=== PATIENT | female | born 1985 | race Caucasian/White ===

== ENCOUNTER 2016-06-07 19:14 | Emergency (ER) | payer OTHER ==
[2016-06-07 19:22] VITALS: O2SAT 98
[2016-06-07] MEDS ORDERED: FLUORESCEIN SODIUM 1 MG STRIP OP ONE ×2 (19:37→19:40)
[2016-06-07] MEDS ORDERED: PROPARACAINE 0.5% 15 ML OPHT DROP ONE (19:38)
[2016-06-07] MEDS ORDERED: PROPARACAINE 0.5% 15 ML OPHT DROP OP ONE (19:39)
--- NOTE | 2016-06-07 19:44 | UCPHY ---
H & P Time Seen by Provider: 06/07/16 19:32 Patient Type: New HPI/ROS: CHIEF COMPLAINT: Right eye pain HISTORY OF PRESENT ILLNESS: 31-year-old female presents with right eye pain. Onset of right eye pain today, associated with excessive watering. Similar to prior episodes of viral conjunctivitis. She has had multiple prior episodes for several years, usually successfully treated with Valtrex. She has a standing prescription from her printer repair technician, but the prescription has . No visual change. No recent injury or illness. REVIEW OF SYSTEMS: Constitutional: No fever, no chills Eyes: No visual changes ENT: No sore throat Respiratory: No cough Gastrointestinal: No nausea, no vomiting Skin: No rash Neurological: No headache Past Medical/Surgical History: Viral conjunctivitis Smoking Status: Never smoked Physical Exam: Lids: no proptosis, no periorbital erythema or swelling, no vesicles Conjunctivae: right conjunctiva all erythema, no discharge Pupils:equal round and reactive to light EOMI Cornea: Normal, no dendrites Anterior chamber:Clear, no hyphema Constitutional: Initial Vital Signs Temperature (C) 36.8 C 06/07/16 19:20 Heart Rate 74 06/07/16 19:20 Respiratory Rate 15 06/07/16 19:20 Blood Pressure 116/77 06/07/16 19:20 O2 Sat (%) 98 06/07/16 19:20 O2 Delivery Mode Room Air Allergies/Adverse Reactions: No Known Allergies Allergy (Unverified 06/07/16 19:19) Home Medications: Medication Instructions Recorded valACYclovir [Valtrex (*)] 500 mg PO TID #30 tab 06/07/16 Medical Decision Making Procedures: Fluorescein and Alcaine instilled into right eye for slit-lamp exam. Differential Diagnosis: Differential diagnosis includes hyphema, acute iritis, traumatic mydriasis, corneal abrasion, globe rupture. - Data Points Medications Given: Discontinued Medications Fluorescein Sodium ([id number]) 1 mg OP EDNOW ONE Stop: 06/07/16 19:41 Last Admin: 06/07/16 19:41 Dose: 1 mg Proparacaine HCl (Alcaine 0.5%) 1 drops OP EDNOW ONE Stop: 06/07/16 19:40 Last Admin: 06/07/16 19:40 Dose: 1 drop Departure - Departure Disposition: Home, Routine, Self-Care Clinical Impression: Conjunctivitis Qualifiers: Conjunctivitis type: acute Acute conjunctivitis type: viral Laterality: right Qualified Code(s): B30.9 - Viral conjunctivitis, unspecified Condition: Good Instructions: Conjunctivitis (ED) Additional Instructions: Follow-up with your printer repair technician. Prescriptions: valACYclovir [Valtrex (*)] 500 mg PO TID #30 tab - PQRS PQRS Measurement: N/A
[2016-06-07 19:54] VITALS: BP 119/75; PULSE 84; RESP 16; TEMP 98.1
== END 2016-06-07 19:54 | disposition home or self-care (01) ==
LOC: CED 19:14
PROC: 08J0XZZ Inspection of Right Eye, External Approach (ICD-10-PCS; principal; 2016-06-07)
DX: B30.9 Viral conjunctivitis, unspecified (principal)
CPT/HCPCS: 99202-PO; G0463-PO